=== PATIENT | male | born 1985 | race Caucasian/White ===

== ENCOUNTER 2022-05-11 23:22 | Emergency (ER) | payer BC ==
[2022-05-11] MEDS ORDERED: Sodium Chloride 0.9% 10 ML Syringe FLUSH PRN (23:25)
[2022-05-11] MEDS ORDERED: Sodium Chloride 0.9% 2.5 ML Syringe FLUSH PRN (23:25)
[2022-05-12] VITALS: BP 121/74; PULSE 110
[2022-05-12] MEDS ORDERED: Ondansetron 4 MG/2 ML SDV IVPUSH ONE ×2 (00:05→02:17)
[2022-05-12] MEDS ORDERED: Lactated Ringers 1,000 ML IV ONE ×2 (00:05)
[2022-05-12] MEDS ORDERED: Sodium Chloride 0.9% 2.5 ML Syringe FLUSH PRN (00:05)
[2022-05-12] MEDS ORDERED: Sodium Chloride 0.9% 10 ML Syringe FLUSH PRN (00:05)
[2022-05-12 00:36] LABS: POTASSIUM,K 4.2 mmol/L (3.5-5.1)
== END 2022-05-12 02:29 | disposition home or self-care (01) ==
LOC: MW.ED 23:22
DX: K52.9 Noninfective gastroenteritis and colitis, unspecified (principal); E66.9 Obesity, unspecified; Z68.38 Body mass index [BMI] 38.0-38.9, adult
CPT/HCPCS: 36415; 80053; 83735; 85025; 96361; 96374; 96376; 99284; J2405; J3490; J7120